=== PATIENT | female | born 1970 | race Caucasian/White ===

== ENCOUNTER → 2020-06-08 | Outpatient (CLI) | payer BC | END | disposition home or self-care (01) | LOC: LAB 13:45 → LAB SHORT 13:45 | DX: R30.0 Dysuria (principal) | CPT/HCPCS: 87086 ==

== ENCOUNTER 2021-03-31 10:34 | Day surgery (SDC) | payer BC ==
[~2021-03-31] VITALS: Ht 160 cm; Wt 72.5 kg
[~2021-03-31 10:34] MED LIST: BUPROPION XL150 M1 PO; MARLISSA-28 TA1 EACH PO
[2021-03-31] MEDS ORDERED: [UNRECOGNIZED DRUG - OTHER] (10:58)
--- NOTE | 2021-03-31 11:15 | NUR ---
03/31/21 1115 Destiney Lemons PRE-OP CHARTED BY [facility]..
== END 2021-03-31 11:54 | disposition home or self-care (01) ==
LOC: ORSCSDS 10:34
PROVIDERS: Internal Medicine Gastroenterology
PROC: 0DBP8ZX Excision of Rectum, Via Natural or Artificial Opening Endoscopic, Diagnostic (ICD-10-PCS; principal; 2021-03-31 12:00)
DX: Z12.11 Encounter for screening for malignant neoplasm of colon (principal); K63.5 Polyp of colon; E78.5 Hyperlipidemia, unspecified; F41.8 Other specified anxiety disorders; K64.8 Other hemorrhoids; Z79.899 Other long term (current) drug therapy
CPT/HCPCS: 88305; J2704; J7120

== ENCOUNTER → 2025-05-28 | Outpatient (CLI) | payer BC ==
[~2025-05-28] MED LIST changes: +[UNRECOGNIZED DRUG - OTHER]
== END ==
LOC: LAB 13:26 → LAB SHORT 13:26
DX: E11.9 Type 2 diabetes mellitus without complications (principal)
CPT/HCPCS: 83036